=== PATIENT | male | born 1950 | race Caucasian/White ===

== ENCOUNTER 2018-03-18 09:28 | Emergency (ER) | payer MEDICARE, OTHER ==
--- NOTE | 2018-03-18 09:59 | EDM.PDOC ---
ED HPI GENERAL MEDICAL PROBLEM - General Chief Complaint: Skin Complaint Stated Complaint: CYST RIGHT SIDE NECK Time Seen by Provider: 03/18/18 09:36 - History of Present Illness INITIAL COMMENTS - FREE TEXT/NARRATIVE: HISTORY AND PHYSICAL: History of present illness: Patient 67-year-old male presents with a concern of systems right posterior ninth had similar episodes in the past and states he was told it was sebaceous cyst that was excised. He denies fever chills nausea vomiting or other complaints Review of systems: As per history of present illness and below otherwise all systems reviewed and negative. Past medical history: As per history of present illness and as reviewed below otherwise noncontributory. Surgical history: As per history of present illness and as reviewed below otherwise noncontributory. Social history: No reported history of drug or alcohol abuse. Family history: As per history of present illness and as reviewed below otherwise noncontributory. Physical exam: HEENT: Right posterior neck has a fairly large approximately 3 x 4 cm cyst with erythema noted there is some superficial fluctuance and this does appear to be consistent with a sebaceous cyst with or without infection., normocephalic, pupils reactive, negative for conjunctival pallor or scleral icterus, mucous membranes moist, throat clear, neck supple, nontender, trachea midline. Lungs: Clear to auscultation, breath sounds equal bilaterally, chest nontender. Heart: S1S2, regular, negative for clicks, rubs, or JVD. Abdomen: Soft, nondistended, nontender. Negative for masses or hepatosplenomegaly. Negative for costovertebral tenderness. Pelvis: Stable nontender. Genitourinary: Deferred. Rectal: Deferred. Extremities: Atraumatic, negative for cords or calf pain. Neurovascular unremarkable. Neuro: Awake, alert, oriented. Cranial nerves II through XII unremarkable. Cerebellum unremarkable. Motor and sensory unremarkable throughout. Exam nonfocal. Diagnostics: None Therapeutics: None Impression: #1 right posterior neck cyst probable sebaceous cyst Definitive disposition and diagnosis as appropriate pending reevaluation and review of above. Right Neck Pain Score (Numeric/FACES): 8 - Related Data Allergies Allergy/AdvReac Type Severity Reaction Status Date / Time shellfish derived Allergy Airway Verified 03/18/18 09:42 Tightness Home Meds: Home Meds Aspirin [Adult Low Dose Aspirin EC] 1 tab DAILY 03/18/18 [History] Losartan Potassium 1 tab DAILY 03/18/18 [History] Omeprazole 40 mg PO DAILY 03/18/18 [History] atorvaSTATin [Lipitor] 10 mg PO BEDTIME 03/18/18 [History] glipiZIDE [Glipizide ER] 1 tab DAILY 03/18/18 [History] metFORMIN HCl [Metformin HCl ER] 1,000 mg BID 03/18/18 [History] Past Medical History - Past Health History Medical/Surgical History: Denies Medical/Surgical History Cardiovascular History: Reports: High Cholesterol, Hypertension Gastrointestinal History: Reports: GERD Dermatologic History: Reports: Other (See Below) Other Dermatologic History: cyst drainage - Infectious Disease History Infectious Disease History: Reports: Chicken Pox - Past Surgical History HEENT Surgical History: Reports: Adenoidectomy, Tonsillectomy Social & Family History - Family History Family Medical History: Noncontributory - Tobacco Use Smoking Status *Q: Never Smoker - Recreational Drug Use Recreational Drug Use: No ED ROS GENERAL - Review of Systems Review Of Systems: ROS reveals no pertinent complaints other than HPI. ED EXAM, SKIN/RASH Exam: See Below (The dictation) Course - Vital Signs Last Recorded V/S: Last Vital Signs Temp 35.8 C 03/18/18 09:39 Pulse 87 03/18/18 09:39 Resp 18 03/18/18 09:39 BP 182/89 H 03/18/18 09:39 Pulse Ox 95 03/18/18 09:39 Departure - Departure Time of Disposition: 09:59 Disposition: Home, Self-Care 01 Condition: Good Clinical Impression: Sebaceous cyst - Discharge Information Referrals: Dwayne Faye MD [Physician] - Jean-Paul Patiño MD [Primary Care Provider] - Forms: ED Department Discharge Additional Instructions: YOU HAVE AN APPOINTMENT SCHEDULED TODAY IN THE [facility] WITH DR FAYE ( SURGEON) AT 2:30PM. PLEASE ARRIVE 20 MINUTES EARLY WITH INSURANCE CARD AND ID.
== END 2018-03-18 10:04 | disposition home or self-care (01) ==
LOC: MW.ED 09:28
DX: L72.3 Sebaceous cyst (principal); I10 Essential (primary) hypertension; Z79.82 Long term (current) use of aspirin; Z91.013 Allergy to seafood; Z79.84 Long term (current) use of oral hypoglycemic drugs; Z79.899 Other long term (current) drug therapy; Z98.890 Other specified postprocedural states
CPT/HCPCS: 99283

== ENCOUNTER 2018-05-15 06:44 | Day surgery (SDC) | payer MEDICARE, OTHER ==
[~2018-05-15 06:44] MED LIST: Lactated Ringers 1,000 ML IV SCH; ceFAZolin 2 GM in Premix Bag 1 BAG IV ONE
[2018-05-15] MEDS ORDERED: fentaNYL 100 MCG/2 ML SDV ONE (07:07)
[2018-05-15] MEDS ORDERED: Propofol 200 MG/20 ML SDV ONE (07:07)
[2018-05-15] MEDS ORDERED: Succinylcholine 200 MG/10 ML MDV ONE (07:09)
[2018-05-15] MEDS ORDERED: Bupivacaine 0.25%/EPINEPHrine 1:200,000 10 ML SDV ONE (07:23)
[2018-05-15] MEDS ORDERED: Octyl 2-Cyanoacrylate 1 Tube ONE (07:23)
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
[2018-05-15] MEDS ORDERED: fentaNYL 100 MCG/2 ML SDV IVPUSH PRN (08:10)
[2018-05-15] MEDS ORDERED: Ondansetron 4 MG/2 ML SDV IVPUSH ONE (08:10)
[2018-05-15] MEDS ORDERED: Acetaminophen/oxyCODONE 325-5 MG Tab PO PRN (08:31)
[2018-05-15] MEDS ORDERED: Ondansetron 4 MG/2 ML SDV ONE (08:56)
--- NOTE | 2018-05-15 09:17 | PCM.OPNOTE ---
- General Post-Op/Procedure Note Date of Surgery/Procedure: 05/15/18 Findings: mass r lower neck excised; [id number] Pre Op Diagnosis: neck mass Post-Op Diagnosis: Same Anesthesia Technique: Moderate Sedation Primary Surgeon: Dwayne Faye Pathology: sent Complications: None Condition: Good
--- NOTE | 2018-05-15 10:04 | PCM48HPAN ---
Post Anesthesia Note - EVALUATION WITHIN 48HRS OF ANESTHETIC Vital Signs in Normal Range: Yes Patient Participated in Evaluation: Yes Respiratory Function Stable: Yes Airway Patent: Yes Cardiovascular Function Stable: Yes Hydration Status Stable: Yes Pain Control Satisfactory: Yes Nausea and Vomiting Control Satisfactory: Yes Mental Status Recovered: Yes Resp Rate: 14 - COMMENTS/OBSERVATIONS Free Text/Narrative:: no anesthesia anesthesia problems
--- NOTE | 2018-05-15 13:48 | OR ---
SURGEON: Dwayne Faye MD DATE OF PROCEDURE: 05/15/2018 PREOPERATIVE DIAGNOSIS: Recurrent skin infection on the right lower neck. POSTOPERATIVE DIAGNOSIS: Recurrent skin infection on the right lower neck. PROCEDURE PERFORMED: Excision of biopsy. COMPLICATION: None. FINDINGS: Piece of scar tissue and cyst coat excised from the mass. PROCEDURE IN DETAIL: The patient was taken to operating room and placed in supine position, and then mild general sedation was initiated. The patient was repositioned into a slightly neck tilt position, and we made sure that was held down by tape. The patient's neck was prepped and draped in a sterile fashion. Local anesthetic was infiltrated. Using a skin scalpel, the ellipsoid incision was made and it is 3.1 cm, whole thing was excised. Good hemostasis achieved by the electrocautery, and the wound was then closed using 3-0 Ethilon running stitches and followed with appropriate dressing. The patient was awakened, transferred to recovery in hemodynamically stable condition. The patient tolerated procedure well. There were no intraoperative complication. Dr. Faye was present through the whole procedure. DUANE / MAYA /[id number]
== END 2018-05-15 10:40 | disposition home or self-care (01) ==
LOC: MW.SDS 06:44
PROVIDERS: ATTEND Surgery
DX: L90.5 Scar conditions and fibrosis of skin (principal); I10 Essential (primary) hypertension; J45.909 Unspecified asthma, uncomplicated; E11.9 Type 2 diabetes mellitus without complications; E78.00 Pure hypercholesterolemia, unspecified; Z79.82 Long term (current) use of aspirin; Z79.84 Long term (current) use of oral hypoglycemic drugs; Z79.899 Other long term (current) drug therapy; Z91.013 Allergy to seafood
CPT/HCPCS: 11424; 82962; J0330; J2001; J2405; J2704; J3010; J3490; J7120; 88305; A9270-GY

== ENCOUNTER 2022-06-12 21:04 | Emergency (ER) | payer OTHER, MEDICARE ==
[2022-06-12] MEDS ORDERED: Albuterol/Ipratropium 3.0-0.5 MG/3 ML Neb Soln NEB ONE (21:25)
[2022-06-12 22:06] LABS: CARBON DIOXIDE,CO2 25.1 mmol/L (21.0-32.0); POTASSIUM,K 4.1 mmol/L (3.5-5.1)
[2022-06-12 23:03] LABS: CORONAVIRUS COVID-19 NAA NEGATIVE (NEGATIVE); INFLUENZA A NAA NEGATIVE (NEGATIVE); INFLUENZA B NAA NEGATIVE (NEGATIVE); RESPIRATORY SYNCYTIAL VIR NAA NEGATIVE (NEGATIVE)
[2022-06-12] MEDS ORDERED: Sodium Chloride 0.9% 1,000 ML IV ONE (23:09)
== END 2022-06-13 01:11 | disposition home or self-care (01) ==
LOC: MW.ED 21:04
DX: R06.02 Shortness of breath (principal); R05.9 Cough, unspecified; E78.00 Pure hypercholesterolemia, unspecified; I10 Essential (primary) hypertension; E11.9 Type 2 diabetes mellitus without complications; E66.9 Obesity, unspecified; Z79.84 Long term (current) use of oral hypoglycemic drugs; Z91.013 Allergy to seafood; Z79.899 Other long term (current) drug therapy; Z20.822 Contact with and (suspected) exposure to COVID-19; Z68.28 Body mass index [BMI] 28.0-28.9, adult
CPT/HCPCS: 0241U; 36415; 71045; 80053; 83880; 84484; 85025; 85379; 93005; 96360; 99285; J7030; 93010; 99283; J7620-GY

== ENCOUNTER 2023-07-16 09:59 | Observation (INO) | payer MEDICARE, OTHER ==
[2023-07-16 10:34] LABS: BASOPHILS ABSOLUTE AUTO 0.02 K/uL (0.00-0.20); BASOPHILS PERCENT AUTO 0.5 % (0.0-1.0); EOSINOPHILS ABSOLUTE AUTO 0.16 K/uL (0.00-0.45); EOSINOPHILS PERCENT AUTO 4.3 % (0.0-6.0); HEMATOCRIT 35.3 % (42.0-52.0); HEMOGLOBIN 11.9 g/dL (14.0-18.0); LYMPHOCYTES ABSOLUTE AUTO 0.55 K/uL (1.00-4.80); LYMPHOCYTES PERCENT AUTO 14.8 % (24.0-44.0); MEAN CORPUSCULAR HEMOGLOBIN 31.2 pg (28.0-32.0); MEAN CORPUSCULAR HGB CONC 33.7 g/dL (32.0-36.0); MEAN CORPUSCULAR VOLUME 92.4 fL (83.0-99.0); MEAN PLATELET VOLUME 11.1 fL (9.4-12.4); MONOCYTES ABSOLUTE AUTO 0.35 K/uL (0.00-0.80); MONOCYTES PERCENT AUTO 9.4 % (0.0-8.0); NEUTROPHILS ABSOLUTE AUTO 2.64 K/uL (1.80-7.70); PLATELET COUNT,PLT 158 K/uL (150-400); RED BLOOD CELL COUNT 3.82 M/uL (4.52-5.90); WHITE BLOOD CELL COUNT,WBC 3.72 K/uL (3.9-11.3)
[2023-07-16 10:54] LABS: INR 1.04 (0.86-1.11)
[2023-07-16 10:59] LABS: A/G RATIO 0.9 (0.9-1.6); ALBUMIN 2.9 g/dL (3.4-5.0); BILIRUBIN TOTAL 0.8 mg/dL (0.2-1.0); CALCIUM 8.5 mg/dL (8.5-10.1); CARBON DIOXIDE,CO2 26.1 mmol/L (21.0-32.0); CREATININE 1.1 mg/dL (0.8-1.3); EST CRCL DRUG DOSING (CG) 58.73 mL/min; POTASSIUM,K 4.1 mmol/L (3.5-5.1); PROTEIN TOTAL,TP 6.3 g/dL (6.4-8.2)
[2023-07-16] MEDS: Iopamidol 755 MG/ML 500 ML Multipack Bottle IVPUSH STA (13:17)
[2023-07-16 13:59] LABS: APPEARANCE,URINE CLEAR; BILIRUBIN,URINE NEGATIVE (NEGATIVE); COLOR,URINE YELLOW; GLUCOSE,URINE >=1000 mg/dL (NEGATIVE); KETONES,URINE NEGATIVE (NEGATIVE); LEUKOCYTE ESTERASE,URINE NEGATIVE (NEGATIVE); NITRITE,URINE NEGATIVE (NEGATIVE); OCCULT BLOOD,URINE TRACE-INTACT (NEGATIVE); PH,URINE 5.5 (5.0-8.0); PROTEIN,URINE 30 mg/dL (NEGATIVE); UROBILINOGEN,URINE 0.2 EU/dL (<2.0)
[2023-07-16 14:22] LABS: HEMOGLOBIN A1C 7.1 %
[2023-07-16] MEDS: Aspirin 81 MG Tab.EC PO ONE (14:40)
[2023-07-16] MEDS ORDERED: 50% Dextrose in Water 50 ML Syringe IVPUSH PRN (14:47)
[2023-07-16] MEDS ORDERED: Glucagon,Human Recombinant 1 MG Vial IM PRN (14:47)
[2023-07-16] MEDS: Gadobenate Dimeglumine 529 MG/ML 20 ML SDV IVPUSH STA (17:12)
[2023-07-16] MEDS: Insulin Aspart 100 Units/ML 3 ML Pen SUBCUT SCH (18:15)
[2023-07-16] MEDS: Tamsulosin 0.4 MG Cap.ER PO SCH (21:51)
[2023-07-16] MEDS: Losartan 50 MG Tab PO SCH (21:51)
[2023-07-16] MEDS: Losartan 50 MG Tab ONE (22:27)
[2023-07-16] MEDS: Tamsulosin 0.4 MG Cap.ER ONE (22:27)
[2023-07-17 05:54] LABS: BASOPHILS ABSOLUTE AUTO 0.03 K/uL (0.00-0.20); BASOPHILS PERCENT AUTO 0.7 % (0.0-1.0); EOSINOPHILS ABSOLUTE AUTO 0.15 K/uL (0.00-0.45); EOSINOPHILS PERCENT AUTO 3.5 % (0.0-6.0); HEMATOCRIT 36.9 % (42.0-52.0); HEMOGLOBIN 12.4 g/dL (14.0-18.0); LYMPHOCYTES ABSOLUTE AUTO 0.87 K/uL (1.00-4.80); LYMPHOCYTES PERCENT AUTO 20.1 % (24.0-44.0); MEAN CORPUSCULAR HEMOGLOBIN 31.4 pg (28.0-32.0); MEAN CORPUSCULAR HGB CONC 33.6 g/dL (32.0-36.0); MEAN CORPUSCULAR VOLUME 93.4 fL (83.0-99.0); MEAN PLATELET VOLUME 10.9 fL (9.4-12.4); MONOCYTES ABSOLUTE AUTO 0.42 K/uL (0.00-0.80); MONOCYTES PERCENT AUTO 9.7 % (0.0-8.0); NEUTROPHILS ABSOLUTE AUTO 2.86 K/uL (1.80-7.70); PLATELET COUNT,PLT 143 K/uL (150-400); RED BLOOD CELL COUNT 3.95 M/uL (4.52-5.90); WHITE BLOOD CELL COUNT,WBC 4.33 K/uL (3.9-11.3)
[2023-07-17 06:17] LABS: CALCIUM 8.7 mg/dL (8.5-10.1); CARBON DIOXIDE,CO2 26.6 mmol/L (21.0-32.0); EST CRCL DRUG DOSING (CG) 64.6 mL/min; POTASSIUM,K 4.3 mmol/L (3.5-5.1)
[2023-07-17] MEDS ORDERED: Losartan 50 MG Tab PO SCH ×2 (07:08→08:12)
[2023-07-17] MEDS: Ibuprofen 400 MG Tab PO ONE (11:06)
[2023-07-17] MEDS: Acetaminophen 500 MG Tab PO ONE (11:14)
== END 2023-07-17 13:30 | disposition home or self-care (01) ==
LOC: MW.ED 09:59 → MW.MS 14:28
PROVIDERS: ADMIT Internal Medicine; ATTEND Internal Medicine
DX: R42 Dizziness and giddiness (principal); I10 Essential (primary) hypertension; E11.9 Type 2 diabetes mellitus without complications; E78.00 Pure hypercholesterolemia, unspecified; Z79.84 Long term (current) use of oral hypoglycemic drugs; Z79.899 Other long term (current) drug therapy; W19.XXXA Unspecified fall, initial encounter; Z91.013 Allergy to seafood
CPT/HCPCS: 36415; 70450; 70496; 70498; 70553; 71045; 80048; 80053; 80061; 81003; 82947; 83036; 84484; 85025; 85610; 93306; 97162; 99285; A9270; A9577; Q9967; 93010; 99284

== ENCOUNTER 2023-09-02 14:15 | Emergency (ER) | payer OTHER, MEDICARE ==
[2023-09-02 14:41] LABS: BASOPHILS ABSOLUTE AUTO 0.03 K/uL (0.00-0.20); BASOPHILS PERCENT AUTO 0.6 % (0.0-1.0); EOSINOPHILS PERCENT AUTO 2.1 % (0.0-6.0); HEMATOCRIT 37.4 % (42.0-52.0); HEMOGLOBIN 12.5 g/dL (14.0-18.0); LYMPHOCYTES ABSOLUTE AUTO 0.84 K/uL (1.00-4.80); MEAN CORPUSCULAR HEMOGLOBIN 30.7 pg (28.0-32.0); MEAN CORPUSCULAR HGB CONC 33.4 g/dL (32.0-36.0); MEAN CORPUSCULAR VOLUME 91.9 fL (83.0-99.0); MONOCYTES ABSOLUTE AUTO 0.45 K/uL (0.00-0.80); MONOCYTES PERCENT AUTO 9.6 % (0.0-8.0); NEUTROPHILS ABSOLUTE AUTO 3.25 K/uL (1.80-7.70); NEUTROPHILS PERCENT AUTO 69.7 % (41.0-71.0); PLATELET COUNT,PLT 190 K/uL (150-400); RED BLOOD CELL COUNT 4.07 M/uL (4.52-5.90); WHITE BLOOD CELL COUNT,WBC 4.67 K/uL (3.9-11.3)
[2023-09-02 14:53] LABS: INR 1.02 (0.86-1.11)
[2023-09-02] MEDS: Lactated Ringers 1,000 ML IV ONE (15:11)
[2023-09-02] MEDS: Sodium Chloride 0.9% 2.5 ML Syringe FLUSH PRN (15:13)
[2023-09-02] MEDS: Sodium Chloride 0.9% 10 ML Syringe FLUSH PRN (15:13)
[2023-09-02 15:17] LABS: A/G RATIO 0.9 (0.9-1.6); ALBUMIN 3.4 g/dL (3.4-5.0); BILIRUBIN TOTAL 0.7 mg/dL (0.2-1.0); CALCIUM 8.7 mg/dL (8.5-10.1); CREATININE 1.4 mg/dL (0.8-1.3); EST CRCL DRUG DOSING (CG) 46.14 mL/min; MAGNESIUM 1.9 mg/dL (1.8-2.4); POTASSIUM,K 4.2 mmol/L (3.5-5.1)
[2023-09-02] MEDS: Sodium Chloride 0.9% 500 ML IV SCH (16:50)
== END 2023-09-02 18:02 | disposition home or self-care (01) ==
LOC: MW.ED 14:15
DX: R42 Dizziness and giddiness (principal); N17.9 Acute kidney failure, unspecified; I10 Essential (primary) hypertension; E78.00 Pure hypercholesterolemia, unspecified; E11.9 Type 2 diabetes mellitus without complications; Z91.013 Allergy to seafood; Z79.899 Other long term (current) drug therapy; Z79.84 Long term (current) use of oral hypoglycemic drugs; Z79.51 Long term (current) use of inhaled steroids; Z79.82 Long term (current) use of aspirin; Z79.4 Long term (current) use of insulin
CPT/HCPCS: 36415; 80053; 82947; 83690; 83735; 84484; 85025; 85610; 93005; 96360; 96361; 99284; J3490; J7040; J7120

== ENCOUNTER 2024-08-18 16:07 | Emergency (ER) | payer OTHER ==
[2024-08-18] MEDS: traMADol 50 MG Tab PO ONE (19:05)
== END 2024-08-18 20:50 | disposition home or self-care (01) ==
LOC: MW.ED 16:07
DX: M25.552 Pain in left hip (principal); E78.00 Pure hypercholesterolemia, unspecified; I10 Essential (primary) hypertension; E11.9 Type 2 diabetes mellitus without complications; Z79.899 Other long term (current) drug therapy; Z79.82 Long term (current) use of aspirin; Z79.4 Long term (current) use of insulin; Z91.013 Allergy to seafood; Z91.041 Radiographic dye allergy status; Z79.84 Long term (current) use of oral hypoglycemic drugs
CPT/HCPCS: 70450; 72125; 72192; 73502; 73552; 73560; 99284; A9270; 99282

== ENCOUNTER 2024-11-26 09:25 | Day surgery (SDC) | payer OTHER, MEDICARE ==
[2024-11-26] MEDS ORDERED: propofoL 500 MG/50 ML 50 ML ONE (09:46)
[2024-11-26] MEDS: Lactated Ringers 1,000 ML IV SCH (10:05)
[2024-11-26] MEDS ORDERED: Lactated Ringers 1,000 ML IV SCH (11:30)
== END 2024-11-26 12:15 | disposition home or self-care (01) ==
LOC: MW.SDS 09:25
PROVIDERS: ATTEND Surgery
DX: Z12.11 Encounter for screening for malignant neoplasm of colon (principal); K57.30 Diverticulosis of large intestine without perforation or abscess without bleeding; E11.42 Type 2 diabetes mellitus with diabetic polyneuropathy; I10 Essential (primary) hypertension; E78.00 Pure hypercholesterolemia, unspecified; E66.9 Obesity, unspecified; Z68.31 Body mass index [BMI] 31.0-31.9, adult; Z91.013 Allergy to seafood; Z91.048 Other nonmedicinal substance allergy status; Z79.899 Other long term (current) drug therapy
CPT/HCPCS: 45378; 82947; J2003; J2704; J7120; 00812; 99100